=== PATIENT | female | born 1945 | race Caucasian/White ===

== ENCOUNTER → 2019-01-11 | Outpatient (CLI) | payer MEDICARE ==
[~2019-01-11] MED LIST: Estrogel93 GM VAG; LISI5
[2019-01-11 12:15] LABS: BASOPHILS ABSOLUTE AUTO 0.04 K/mm3 (0.00-0.23); BASOPHILS PERCENT AUTO 1 % (0-2); EOSINOPHILS ABSOLUTE AUTO 0.09 K/mm3 (0.00-0.68); EOSINOPHILS PERCENT AUTO 1 % (0-6); Hematocrit 28.9 % (33.0-51.0); Hemoglobin 9.7 g/dL (11.5-16.0); IMMATURE GRAN ABSOLUTE AUTO 0.07 K/mm3 (0.00-0.10); IMMATURE GRAN PERCENT AUTO 1 % (0-1); LYMPHOCYTES ABSOLUTE AUTO 1.06 K/mm3 (0.84-5.20); LYMPHOCYTES PERCENT AUTO 14 % (21-46); MONOCYTES ABSOLUTE AUTO 0.69 K/mm3 (0.16-1.47); MONOCYTES PERCENT AUTO 9 % (4-13); Mean Corpuscular HGB 32.7 pg (26.0-34.0); Mean Corpuscular HGB Conc 33.6 g/dL (31.5-36.5); Mean Corpuscular Volume 97 fL (80-100); NEUTROPHILS ABSOLUTE AUTO 5.89 K/mm3 (1.96-9.15); NEUTROPHILS PERCENT AUTO 75 % (41-73); Platelet Count 569 K/mm3 (150-400); RDW Coefficient Variation 13.2 % (11.7-14.2); RDW Standard Deviation 45.7 fL (35.1-46.3); Red Blood Cell Count 2.97 M/mm3 (3.80-5.20); White Blood Cell Count 7.84 K/mm3 (4.00-11.30)
[2019-01-11 12:27] LABS: Alanine Aminotransfer (ALT/SGP 25 U/L (12-78); Albumin/Globulin Ratio 0.8 (0.8-1.8); Alk Phos 61 U/L (50-136); Anion Gap 6 mmol/L (6-16); Aspartate Aminotrans (AST/SGOT 21 U/L (12-37); Bilirubin, Total 0.4 mg/dL (0.1-1.0); Blood Urea Nitrogen 12 mg/dL (8-24); Bun/Creatinine Ratio 19.5 (12.0-20.0); CO2, Blood 30 mmol/L (21-32); Chloride, Blood 100 mmol/L (98-108); Creatinine, Blood 0.62 mg/dL (0.40-1.00); Globulin, Blood 3.6 g/dL (2.2-4.0); Glomerular Filtration Rate >60 (60-); Glucose, Blood 102 mg/dL (70-99); Potassium, Blood 4.5 mmol/L (3.5-5.5); Sodium, Blood 136 mmol/L (136-145); Total Protein, Blood 6.6 g/dL (6.4-8.2)
== END | disposition home or self-care (01) ==
LOC: LAB SHORT 11:51 → LAB 11:51
PROVIDERS: Registered Nurse Oncology
DX: C25.0 Malignant neoplasm of head of pancreas (principal)
CPT/HCPCS: 80053; 85025

== ENCOUNTER → 2021-12-16 | Outpatient (CLI) | payer MEDICARE | END | disposition home or self-care (01) | LOC: LAB SHORT 11:12 → PLD 11:12 | DX: L57.0 Actinic keratosis (principal); L21.0 Seborrhea capitis | CPT/HCPCS: 88305 ==

== ENCOUNTER 2022-01-09 11:13 | Inpatient (IN) | payer MEDICARE ==
[~2022-01-09] VITALS: Ht 165.1 cm; Wt 45.4 kg
[~2022-01-09 11:13] MED LIST changes: +ASPI81CH PO; +ATOR40TA PO; +CHOLESTYRAMI239.4 G1 PO; +CLOP75 PO; +CREON DR 36,001 EACH PO; +MS Contin15 MG PO; +OXYC5
[2022-01-09 12:06] LABS: BASOPHILS ABSOLUTE AUTO 0.02 K/mm3 (0.00-0.23); BASOPHILS PERCENT AUTO 0 % (0-2); EOSINOPHILS PERCENT AUTO 0 % (0-6); Hematocrit 33.9 % (33.0-51.0); Hemoglobin 11.2 g/dL (11.5-16.0); IMMATURE GRAN ABSOLUTE AUTO 0.09 K/mm3 (0.00-0.10); IMMATURE GRAN PERCENT AUTO 1 % (0-1); LYMPHOCYTES ABSOLUTE AUTO 0.28 K/mm3 (0.84-5.20); LYMPHOCYTES PERCENT AUTO 2 % (21-46); MONOCYTES ABSOLUTE AUTO 0.57 K/mm3 (0.16-1.47); MONOCYTES PERCENT AUTO 4 % (4-13); Mean Corpuscular HGB 32.5 pg (26.0-34.0); Mean Corpuscular Volume 98 fL (80-100); Mean Platelet Volume 10.1 fL (9.1-12.4); NEUTROPHILS PERCENT AUTO 94 % (41-73); Platelet Count 281 K/mm3 (150-400); RDW Coefficient Variation 13.5 % (11.7-14.2); RDW Standard Deviation 48.2 fL (35.1-46.3); Red Blood Cell Count 3.45 M/mm3 (3.80-5.20); White Blood Cell Count 14.66 K/mm3 (4.00-11.30)
[2022-01-09 12:09] LABS: Albumin, Blood 3.2 g/dL (3.4-5.0); Albumin/Globulin Ratio 0.8 (0.8-1.8); Bun/Creatinine Ratio 26.9 (12.0-20.0); Calcium, Blood 9.4 mg/dL (8.5-10.1); Creatinine, Blood 0.56 mg/dL (0.40-1.00); Globulin, Blood 3.9 g/dL (2.2-4.0); Potassium, Blood 3.7 mmol/L (3.5-5.5); Total Protein, Blood 7.1 g/dL (6.4-8.2)
--- NOTE | 2022-01-09 20:53 | NUR ---
2049 REPORT RECIEVED FROM RASTA LAKE @ .
--- NOTE | 2022-01-10 00:09 | NUR ---
2129: PT ARRIVE TO MEDICAL FLOOR UNIT ROOM 340, VIA GURNEY TRANSFERED WITH A SLIDER SHEET. PT NONDISTRESSED. AOX4. PALE AND APPEARS TO BE VERY WEAK. PT REPORTS ABD PAIN 8/10, MEDICATED WITH 1MG DILAUDID. LR INFUSING AT 100MLS/HR WITH A RIGHT AC IV. VOIDED 300MLS, TEA COLOR URINE. AMBULATES WITH 1 SBA WITH FWW AND GB DENIES DIZZINESS, STEADY ON FEET. TOLERATING WATER AND RAMBO. PT DENIES N/V. VSS. DENIES CHEST PAIN. PT ON 2L NC, SATURATING WNL OVER 95%. CALL LIGHT WITHIN REACH. WILL CONTINUE TO MONITOR PT.
--- NOTE | 2022-01-10 04:04 | NUR ---
SHIFT SUMMARY NO ACUTE CHANGES OVERNIGHT. PT REPORT PAIN WHEN SHE GOT TO THE FLOOR. PAIN MANAGED WITH 1MG DILAUDID. VSS. PT ON 2L NC, WITH O2 SAT ABOVE 95%. PT TOLERATING PO INTAKE, DENIES NAUSEA AND VOMITING. PT MAY HAVE POOR APPEPTITE. IV FLUIDS INFUSING LR AT 100MLS/HR. IV ABX ADMINISTERED. AOX3. APPEARS TO BE ILL AND FATIGUE. NON DISTRESSED. CALL LIGHT WITHIN REACH. WILL CONTINUE TO MONITOR AND WILL PROVIDE REPORT TO ONCOMING NURSE.
[2022-01-10 04:45] LABS: BASOPHILS ABSOLUTE AUTO 0.02 K/mm3 (0.00-0.23); BASOPHILS PERCENT AUTO 0 % (0-2); EOSINOPHILS PERCENT AUTO 0 % (0-6); Hematocrit 32.6 % (33.0-51.0); Hemoglobin 10.6 g/dL (11.5-16.0); IMMATURE GRAN ABSOLUTE AUTO 0.12 K/mm3 (0.00-0.10); IMMATURE GRAN PERCENT AUTO 1 % (0-1); LYMPHOCYTES ABSOLUTE AUTO 0.78 K/mm3 (0.84-5.20); LYMPHOCYTES PERCENT AUTO 5 % (21-46); MONOCYTES ABSOLUTE AUTO 0.62 K/mm3 (0.16-1.47); MONOCYTES PERCENT AUTO 4 % (4-13); Mean Corpuscular HGB 32.1 pg (26.0-34.0); Mean Corpuscular HGB Conc 32.5 g/dL (31.5-36.5); Mean Corpuscular Volume 99 fL (80-100); Mean Platelet Volume 9.9 fL (9.1-12.4); NEUTROPHILS ABSOLUTE AUTO 15.18 K/mm3 (1.96-9.15); NEUTROPHILS PERCENT AUTO 91 % (41-73); Platelet Count 212 K/mm3 (150-400); RDW Coefficient Variation 14.3 % (11.7-14.2); RDW Standard Deviation 51.7 fL (35.1-46.3); White Blood Cell Count 16.72 K/mm3 (4.00-11.30)
[2022-01-10 05:03] LABS: Albumin, Blood 2.5 g/dL (3.4-5.0); Albumin/Globulin Ratio 0.7 (0.8-1.8); Bilirubin, Total 6.1 mg/dL (0.1-1.0); Bun/Creatinine Ratio 29.2 (12.0-20.0); Calcium, Blood 8.6 mg/dL (8.5-10.1); Creatinine, Blood 0.58 mg/dL (0.40-1.00); Globulin, Blood 3.4 g/dL (2.2-4.0); Potassium, Blood 3.7 mmol/L (3.5-5.5); Total Protein, Blood 5.9 g/dL (6.4-8.2)
--- NOTE | 2022-01-10 18:33 | NUR ---
PATIENT WAS ON OXYGEN, BUT NORMALLY DOES NOT USE THIS AT HOME. WE REMOVED THE 02, AND SA02 REMAIN 98% RA. OXYGEN IS NO LONGER ON, BUT TUBING IS BEDSIDE INCASE SHE WOULD NEED IT. PATIENTS PAIN HAS BEEN MANAGED THIS SHIFT. MID ABDOMEN PAIN. A BILIARY DUCT STENT IS BLOCKED. THERE IS A PREOP CONSULT WITH [facility] ON THURSDAY FOR A NEW STENT POSSIBLY. SHE WAS FOUND TO HAVE LEISONS ON THE LIVER WITH GOOD POSSIBILITY OF METS FROM PANCREATIC CANCER. PATIENT IS ALERT AND ORIENTATED WITH MOMENTS OF DAZING OFF INTO THE DISTANCE. SHE IS ABLE TO AMBULATE TO THE , WITH WALKER AND STAND BY. CREON (MEDICATION) IS A DIFFERENT DOSE THAN HOME CAPSULE, SO IS ABLE TO BRING HOME CAPSULES IN, AND WE MAY HAVE PHARMACY VERIFY. (SHE HAS TO TAKE ALOT MORE CAPSULES TO EQUAL HER HOME DOSE ON THE CAPS SUELLEN CURRENTLY HAS) WBC HIGH, AND IV ABX ARE PRESCRIBED AND IFUSING-WELL TOLERATED.
--- NOTE | 2022-01-11 04:59 | NUR ---
SHIFT SUMMARY NO ACUTE EVENTS T/O SHIFT. EARLY IN THE EVENING PT C/O NAUSEA AND WAS GIVEN PRN MEDICATION WHICH HELPED. PT THEN C/O 8/10 ABDOMINAL PAIN WHICH SHE THOUGHT WAS GAS PAIN, BUT WAS UNABLE TO PASS ANY GAS OR STOOL. HER PRN PO PAIN MEDICATION WASN'T BRINGING HER PAIN TO TOLERABLE LEVELS, SO SHE WAS GIVEN PRN DILAUDED WHICH DID BRING THE PAIN TO A TOLERABLE LEVEL. PT'S CT REVEALED INCREASING PANCREATIC MALIGNANCY WELL LESIONS ON THE LIVER. AT THIS TIME WE ARE UNAWARE IF THE DOCTOR HAS DISCUSSED THESE FINDINGS WITH HER.
--- NOTE | 2022-01-11 14:55 | NUR ---
SHIFT SUMMARY PT AWAKE DURING SHIFT REPORT THIS AM. PLEASANT AND CO-OP, ABLE TO MAKE NEEDS KNOWN. UP TO BTHRM WITH 1P SBA USING FWW. PT ADMITTED FOR BILARY STENT OCCULSSION; WAITING FOR DR HERMAN TO SEE HER ON THURSDAY. DR NGUYEN IN THIS AM TO SEE PT. CT OF HEAD AND CHEST DONE AFTER BREAKFAST. PER DR NGUYEN, PT TO F/U WITH DR FAITH OUTPT. HOME DOSE OF CREON BROUGHT IN BY TO VERIFY. BOWEL CARE GIVEN PER PT REQUEST. PT UP TO BTHRM SEVERAL TIMES; C/O BLOATING/GAS. MEDICATED FOR C/O PAIN PER EMAR. IV ABX GIVEN PER EMAR. EATING BETTER FOR LUNCH. RESTING QUIETLY AT THIS TIME. CALL LT IN REACH.
--- NOTE | 2022-01-12 04:39 | NUR ---
SHIFT SUMMARY ADMITTED FOR CHOLANGITIS/SEPSIS. DNR CODE. FOUND TO HAVE A BILIARY STENT OCCLUSION.IV ANTIB RX ARE SCHEDULED. MEDIPORT IN PLACE BUT NOT ACCESSED. HX OF PANCREATIC CANCER. DR. GUZMAN WILL SEE PT THURSDAY FOR POSSIBLE STENT. PT WILL SEE ONCOLOGY OUTPT. METASTASIS IS POSSIBLE. SHE IS ON PLAVIX. PRN PAIN MEDICATION GIVEN THIS SHIFT
[2022-01-12 05:13] LABS: BASOPHILS ABSOLUTE AUTO 0.01 K/mm3 (0.00-0.23); BASOPHILS PERCENT AUTO 0 % (0-2); EOSINOPHILS ABSOLUTE AUTO 0.02 K/mm3 (0.00-0.68); EOSINOPHILS PERCENT AUTO 0 % (0-6); Hematocrit 29.2 % (33.0-51.0); Hemoglobin 9.6 g/dL (11.5-16.0); IMMATURE GRAN ABSOLUTE AUTO 0.02 K/mm3 (0.00-0.10); IMMATURE GRAN PERCENT AUTO 0 % (0-1); LYMPHOCYTES ABSOLUTE AUTO 0.94 K/mm3 (0.84-5.20); LYMPHOCYTES PERCENT AUTO 15 % (21-46); MONOCYTES ABSOLUTE AUTO 0.34 K/mm3 (0.16-1.47); MONOCYTES PERCENT AUTO 6 % (4-13); Mean Corpuscular HGB Conc 32.9 g/dL (31.5-36.5); Mean Corpuscular Volume 100 fL (80-100); Mean Platelet Volume 10.6 fL (9.1-12.4); NEUTROPHILS ABSOLUTE AUTO 4.84 K/mm3 (1.96-9.15); NEUTROPHILS PERCENT AUTO 79 % (41-73); Platelet Count 193 K/mm3 (150-400); RDW Coefficient Variation 14.6 % (11.7-14.2); RDW Standard Deviation 54.5 fL (35.1-46.3); Red Blood Cell Count 2.91 M/mm3 (3.80-5.20); White Blood Cell Count 6.17 K/mm3 (4.00-11.30)
[2022-01-12 05:26] LABS: Albumin, Blood 2.1 g/dL (3.4-5.0); Albumin/Globulin Ratio 0.6 (0.8-1.8); Bilirubin, Total 2.2 mg/dL (0.1-1.0); Bun/Creatinine Ratio 37.1 (12.0-20.0); Calcium, Blood 8.2 mg/dL (8.5-10.1); Creatinine, Blood 0.59 mg/dL (0.40-1.00); Globulin, Blood 3.4 g/dL (2.2-4.0); Potassium, Blood 4.2 mmol/L (3.5-5.5); Total Protein, Blood 5.5 g/dL (6.4-8.2)
--- NOTE | 2022-01-12 16:47 | NUR ---
SHIFT SUMMARY PT RESTING QUIETLY AT START OF SHIFT. WAKES EASILY FOR CARE. C/O PAIN THRU OUT THE DAY; MEDICATED PER EMAR. HEATING PAD GIVEN WELL; PT REPORTED IT HELPFUL. PT NOT EATING MUCH, BUT DOES TRY TO DRINK ENSURE'S AND FOCUS ON WHAT IS MOST IMPORTANT FOR NUTRITION. IN TO SEE PT THIS AFTERNOON. UP TO BTHRM NEEDED USING FWW AND SBA. CONTINUES TO WAIT FOR CONSULT WITH DR GUZMAN TOMORROW. CALL LT IN REACH. ABLE TO MAKE NEEDS KNOWN.
[2022-01-13 06:13] LABS: BASOPHILS ABSOLUTE AUTO 0.01 K/mm3 (0.00-0.23); BASOPHILS PERCENT AUTO 0 % (0-2); EOSINOPHILS ABSOLUTE AUTO 0.01 K/mm3 (0.00-0.68); EOSINOPHILS PERCENT AUTO 0 % (0-6); Hematocrit 32.1 % (33.0-51.0); Hemoglobin 10.3 g/dL (11.5-16.0); IMMATURE GRAN ABSOLUTE AUTO 0.02 K/mm3 (0.00-0.10); IMMATURE GRAN PERCENT AUTO 0 % (0-1); LYMPHOCYTES ABSOLUTE AUTO 1.08 K/mm3 (0.84-5.20); LYMPHOCYTES PERCENT AUTO 17 % (21-46); MONOCYTES ABSOLUTE AUTO 0.39 K/mm3 (0.16-1.47); MONOCYTES PERCENT AUTO 6 % (4-13); Mean Corpuscular HGB 32.2 pg (26.0-34.0); Mean Corpuscular HGB Conc 32.1 g/dL (31.5-36.5); Mean Corpuscular Volume 100 fL (80-100); Mean Platelet Volume 10.5 fL (9.1-12.4); NEUTROPHILS ABSOLUTE AUTO 4.87 K/mm3 (1.96-9.15); NEUTROPHILS PERCENT AUTO 76 % (41-73); Platelet Count 216 K/mm3 (150-400); RDW Coefficient Variation 14.4 % (11.7-14.2); RDW Standard Deviation 53.3 fL (35.1-46.3); White Blood Cell Count 6.38 K/mm3 (4.00-11.30)
[2022-01-13 06:30] LABS: Albumin, Blood 2.3 g/dL (3.4-5.0); Albumin/Globulin Ratio 0.6 (0.8-1.8); Bilirubin, Total 1.8 mg/dL (0.1-1.0); Bun/Creatinine Ratio 26.8 (12.0-20.0); Calcium, Blood 8.4 mg/dL (8.5-10.1); Creatinine, Blood 0.6 mg/dL (0.40-1.00); Globulin, Blood 3.8 g/dL (2.2-4.0); Potassium, Blood 4.4 mmol/L (3.5-5.5); Total Protein, Blood 6.1 g/dL (6.4-8.2)
[2022-01-13 16:39] LABS: Hematocrit 29.2 % (33.0-51.0); Hemoglobin 9.6 g/dL (11.5-16.0)
--- NOTE | 2022-01-13 16:56 | NUR ---
SHIFT SUMMARY PT WENT FOR SURGERY FOR BILIARY STENT BLOCKAGE TODAY. PT RETURNED APPROX 1245. POST OP VITALS INITATED. PT HAD URESIL DRAIN PLACED INSTEAD OF REPLACING STENT. WOUND TO RLQ HAD PRESSURE DRESSING ON UPON RETURN TO MEDICAL FLOOR. DRESSING SATURATED BY BLOOD AFTER ABOUT AN HOUR. SURGEON CONSULTED AND GAVE INSTRUCTION TO APPLY NEW PRESSURE DRESSING. RN FROM [facility]IED [facility] CAME TO ASSIST WITH DRESSING CHANGE. PT REPORTS 10/10 PAIN IN ABDOMEN. MEDICATED PER EMAR. AT APPROX 1700, SECOND DRESSING APPEARS TO BE SOAKING THROUGH. CHARGE NURSE INVOLVED WITH CASE. STAT H&H ORDERED. WILL REDRESS SITE AND CONSULT WITH SURGEON ON NEXT STEPS. PT CURRENTLY LAYING IN BED, TRYING TO REST. CALL LIGHT IN REACH.
[2022-01-13 20:46] LABS: Hematocrit 30.7 % (33.0-51.0); Hemoglobin 9.9 g/dL (11.5-16.0)
--- NOTE | 2022-01-14 00:49 | NUR ---
PRESSURE DX CHANGED TO BILIARY DRAIN INSERTION SITE. IT CONT'S TO CONSTANTLY OOZE RED BLOODY DRAINAGE W/LARGE AMT OF DARK BROWN/BLOOD TINGED OUTPUT EMPTIED FROM URESIL DRAINAGE BAG. APPROX 550MLS OUTPUT THUS FAR THIS SHIFT. DRAIN SPONGES AND ABD PAD WERE REPLACED W/PRESSURE APPLIED DURING APPLICATION OF NEW CLEAR OCCLUSIVE DX OVER TOP. PRN PAIN MEDS RECEIVED PER EMAR, AWAITING EFFECT AND WCTM DX/NEED TO CHANGE AGAIN. WAS PREVIOUSLY MADE AWARE OF PERSISTANT DRAINAGE W/NO NEW ORDERS RECIEVED AT THE TIME.
[2022-01-14 01:02] LABS: Hematocrit 29.7 % (33.0-51.0); Hemoglobin 9.6 g/dL (11.5-16.0)
[2022-01-14 05:30] LABS: BASOPHILS ABSOLUTE AUTO 0.02 K/mm3 (0.00-0.23); BASOPHILS PERCENT AUTO 0 % (0-2); EOSINOPHILS PERCENT AUTO 0 % (0-6); Hematocrit 23.9 % (33.0-51.0); Hemoglobin 7.7 g/dL (11.5-16.0); IMMATURE GRAN ABSOLUTE AUTO 0.03 K/mm3 (0.00-0.10); IMMATURE GRAN PERCENT AUTO 0 % (0-1); LYMPHOCYTES ABSOLUTE AUTO 1.67 K/mm3 (0.84-5.20); LYMPHOCYTES PERCENT AUTO 22 % (21-46); MONOCYTES ABSOLUTE AUTO 0.48 K/mm3 (0.16-1.47); MONOCYTES PERCENT AUTO 6 % (4-13); Mean Corpuscular HGB 32.2 pg (26.0-34.0); Mean Corpuscular HGB Conc 32.2 g/dL (31.5-36.5); Mean Corpuscular Volume 100 fL (80-100); Mean Platelet Volume 10.2 fL (9.1-12.4); NEUTROPHILS ABSOLUTE AUTO 5.52 K/mm3 (1.96-9.15); NEUTROPHILS PERCENT AUTO 72 % (41-73); Platelet Count 201 K/mm3 (150-400); RDW Standard Deviation 51.6 fL (35.1-46.3); Red Blood Cell Count 2.39 M/mm3 (3.80-5.20); White Blood Cell Count 7.72 K/mm3 (4.00-11.30)
--- NOTE | 2022-01-14 05:50 | NUR ---
SUMMARY: PT A/OX4, IS PLEASANT AND COOPERATIVE W/CARE AND SPECIFIES NEEDS. BILIARY DRAIN REMAINS PATENT AND DRAINING DARK RODRIGUEZ/BROWN, BLOOD TINGED OUTPUT W/MODERATE AMT OF BLOOD CLOTS OBSERVED. THERE'S BEEN APPROX 950 MLS OUTPUT THIS SHIFT. PRESSURE DX TO THE BILIARY INSERTION SITE REMAINS C/D/I AFTER BEING CHANGED ONCE THIS SHIFT. PREVIOUS DX HAD BECOME SATURATED FROM CONSTANT OOZING OF BLOOD AND SEROSANGUINOUS DRAINAGE AROUND DRAIN. SEE PREVIOUS NOTE FOR DETAILS. SHE REPORTS ABDO FEELS LESS DISTENDED/BLOATED THIS MORNING AND ABDO/R.SIDE PAIN IS SLIGHLTY IMPROVED BUT SHE'S REQUIRED REGULAR PRN PAIN MEDICATION T/O NOCTE. X3 DOSES OXYCODONE, X2 DOSES DILAUDID AND A ONE TIME DOSE OF FENTANYL WERE RECIEVED THIS SHIFT TO ACHIEVE 7-8/10 PAIN CONTROL. SHE ALSO HAD INTERMITTENT NAUSEA W/ZOFRAN RECIEVED X2 DOSES FOR TOLERABLE RELIEF. Q4H VITALS HAVE BEEN STABLE BUT BP IS SLIGHTLY LOW THIS AM, NOW 107/63. SHE DOES ADMIT TO "FINALL" FEELING SLIGHTLY MORE COMFORTABLE. Q4H MONITORING OF HGB/HCT IN PROGRESS. THESE LABS HAD HELD STABLE T/O NOCTE BUT THEY SIGNIFICANTLY DROPPED THIS AM, NOW 7.7/23.9 WAS 9.6/29.7. PLAN TO ALERT MD OF CHANGE. PT DENIES SOB, DIZZINESS AND ALL S/S CARDIAC OR RESPIRATORY DISTRESS. SHE WAS UP TO TOILET ONCE THIS SHIFT W/SBA AND TOLERATED AMBULATING FAIR DESPITE PAIN. PT WAS ASSISTED W/REPOSITIONING IN BED FOR SBD PREVENTION WEAKNESS PERSISTS. NO ACUTE CHANGES, VSS/AFEBRILE. WCTM/REPORT TO DAY RN.
[2022-01-14 05:59] LABS: Albumin/Globulin Ratio 0.6 (0.8-1.8); Bilirubin, Total 1.3 mg/dL (0.1-1.0); Bun/Creatinine Ratio 32.4 (12.0-20.0); Creatinine, Blood 0.62 mg/dL (0.40-1.00); Globulin, Blood 3.2 g/dL (2.2-4.0); Magnesium, Blood 2.3 mg/dL (1.6-2.4); Phosphorus, Blood 2.5 mg/dL (2.5-4.9); Potassium, Blood 4.4 mmol/L (3.5-5.5); Total Protein, Blood 5.2 g/dL (6.4-8.2)
--- NOTE | 2022-01-14 06:31 | NUR ---
ALERTED TO TRENDING DOWNWARD HGB/HCT. NEW ORDERS RECIEVED TO TYPE AND CROSS AND CLOSELY MONITOR BP'S, HGB/HCT AND BILIARY DRAIN OUTPUT AND SITE BLEEDING. WILL ENSURE DAY SHIFT IS AWARE TO REPORT ABNORMAL FINDINGS AND FURTHER DROP IN LAB VALUES.
[2022-01-14 08:53] LABS: Hematocrit 23.4 % (33.0-51.0); Hemoglobin 7.5 g/dL (11.5-16.0)
[2022-01-14 11:42] LABS: Hematocrit 22.9 % (33.0-51.0); Hemoglobin 7.3 g/dL (11.5-16.0)
[2022-01-14 12:48] LABS: Hemoglobin 7.5 g/dL (11.5-16.0)
[2022-01-14 16:53] LABS: Hemoglobin 7.3 g/dL (11.5-16.0)
--- NOTE | 2022-01-14 17:00 | NUR ---
PATIENT IS PAINFUL TODAY, IN THE AREA OF THE BILIARY DRAIN. THE DRESSING WAS CHANGED X 1 THIS SHIFT, WITH NO BLODDY DRAINAGE ON THE DRESSING. THE DRAIN HAS BEEN PUTTING OUT BROWN/RUST COLORED FLUID AT A FAIRLY GOOD RATE. NO LARGE CLOTS PRESENT, WHICH IS A POSITIVE DIFFERENCE SINCE LAST SHIFT. PATIENT HGB IS LOW AND THE PROVIDER HAS ORDER TO TRANSFUSE IF HGB DROPS TO 7. TODAY HGB 842AM 7.5, HGB 1135 7.3, HGB 1227 7.5 AND HGB 1625 7.3. PATIENT HAS HAD ROXICODONE PRN X 2 THIS SHIFT, ALONG WITH SCHEDULED MORPHINE. WHILE RESTING, SHE IS MORE COMFORTABLE, BUT UP THE BR, OR WITH MOVEMENT PAIN IN THE INCISION AREA GOES UP TO 9/10 EVEN WITH PAIN MEDICATION ON BOARD. APPETITE IS DECREASED. LITTLE FOOD TAKEN IN. SUPPLEMENT 100%. NORMAL SALINE RATE CHANGED TO 50 CC/HR, CONTINUOUS, AND ANTIBIOTIC WAS CHANGED TO UNISYN.
[2022-01-14 19:53] LABS: Hematocrit 24.7 % (33.0-51.0); Hemoglobin 7.9 g/dL (11.5-16.0)
--- NOTE | 2022-01-15 04:02 | NUR ---
SUMMARY: PT A/OX4, SPECIFIES NEEDS AND IS PLEASANT AND COOPERATIVE W/CARE. SHE REMAINS DROWSY AND SLEPT MAJORITY OF NOCTE BUT IS WAKEFUL DURING CARE AND ASSISTS W/REPOSITIONING. SHE WAS UP W/1PA AND FWW TO TOILET BUT IS WEAK AND MOVES SLOWLY. ROM REMAINS LIMITED R/T PAIN AT NEW BILIARY DRAIN SITE BUT THIS SEEMS TO BE IMPROVING. SCHEDULED MS CONTIN, PRN DILAUDID X1 AND PRN ROXICODONE X1 RECIEVED TO ACHIEVE TOLERABLE 7/10 PAIN CONTROL. MODERATE AMT OF DARK TEA/ RUST COLORED BILIARY DRAIN OUPUT OBSERVED TO URISEL BAG W/OCCASIONAL SMALL CLOTS NOTED. DX TO INSERTION SITE DIDN'T REQUIRE CHANGED THIS SHIFT AND IS C/D/I W/O EVIDENCE BLEEDING. HGB/HCT REMAIN STABLE AND NO BLOOD TRANSFUSION NECCESSARY PER RX TO TRANSFUSE IF HGB<7.0. PT DENIED NAUSEA AND TOLERATED SMALL SIPS OF LIQUID TONIGHT. NS INFUSES AT 50 ML/HR W/ABX RECIEVED PER EMAR. NO ACUTE CHANGES, VSS/AFEBRILE. WCTM/REPORT TO DAY RN.
[2022-01-15 04:28] LABS: BASOPHILS ABSOLUTE AUTO 0.01 K/mm3 (0.00-0.23); BASOPHILS PERCENT AUTO 0 % (0-2); EOSINOPHILS ABSOLUTE AUTO 0.02 K/mm3 (0.00-0.68); EOSINOPHILS PERCENT AUTO 0 % (0-6); Hematocrit 22.2 % (33.0-51.0); IMMATURE GRAN ABSOLUTE AUTO 0.03 K/mm3 (0.00-0.10); IMMATURE GRAN PERCENT AUTO 0 % (0-1); LYMPHOCYTES ABSOLUTE AUTO 1.47 K/mm3 (0.84-5.20); LYMPHOCYTES PERCENT AUTO 21 % (21-46); MONOCYTES ABSOLUTE AUTO 0.55 K/mm3 (0.16-1.47); MONOCYTES PERCENT AUTO 8 % (4-13); Mean Corpuscular HGB 32.1 pg (26.0-34.0); Mean Corpuscular HGB Conc 31.5 g/dL (31.5-36.5); Mean Corpuscular Volume 102 fL (80-100); Mean Platelet Volume 10.4 fL (9.1-12.4); NEUTROPHILS PERCENT AUTO 70 % (41-73); Platelet Count 189 K/mm3 (150-400); RDW Coefficient Variation 14.1 % (11.7-14.2); RDW Standard Deviation 52.4 fL (35.1-46.3); Red Blood Cell Count 2.18 M/mm3 (3.80-5.20); White Blood Cell Count 6.88 K/mm3 (4.00-11.30)
[2022-01-15 04:52] LABS: Albumin, Blood 2.1 g/dL (3.4-5.0); Albumin/Globulin Ratio 0.7 (0.8-1.8); Bun/Creatinine Ratio 40.6 (12.0-20.0); C-REACTIVE PROTEIN, EXT RANGE 2.24 mg/dL (0.000-0.300); Calcium, Blood 7.8 mg/dL (8.5-10.1); Creatinine, Blood 0.52 mg/dL (0.40-1.00); Globulin, Blood 3.2 g/dL (2.2-4.0); Total Protein, Blood 5.3 g/dL (6.4-8.2)
[2022-01-15 08:50] LABS: Hemoglobin 7.7 g/dL (11.5-16.0)
--- NOTE | 2022-01-15 18:53 | NUR ---
PT IS A/OX4, PLEASANT AND COOPERATIVE. THE PT IS UP WITH ASSIST. THE PT APPEARS TO BE BREATHING EASILY ON RA AT THIS TIME. TODAY THE PT EREPORTED HAVING CRAMPING/STABBING ABD PAIN AND BLOATING.THE PT WAS MEDICATED FOR PAIN T/O THE DAY WITH LITTLE RELIEF. A CALL WAS MADE TO DR. DAVIS AND LACULOSE WAS ORDERED AND GIVEN THIS EVENING. PTS IS AT THE BEDSIDE AT THIS TIME. CALL LIGHT IN REACH.
--- NOTE | 2022-01-16 06:06 | NUR ---
SHIFT SUMMARY: ATTEMPTED TO MANAGE PT PAIN T/O SHIFT BUT WAS ONLY MODERATELY MANAGED. PT C/O SEVERE PAIN TO HER R ABD, NEAR HER BILLIARY DRAIN. KARINE [place] DISCUSSED WITH PROVIDER AND A ONE TIME DOSE OF DILAUDID WAS ADDED. AFTER ADMINSITRATION, ALONGSIDE OTHER EMAR ORDERS, THE PT PAIN WAS BETTER MANAGED. BILLIARY DRAIN HAD MODERATE DRAINAGE. THIS AM DRESSING IS BECOMING SATURATED MORE QUICKLY. PT IS UNABLE TO TOLERATE PRESSURE DRESSING, BULKY DRESSING APPLIED. SS DRAINAGE W/ BILE INTO URESIL BAG. WILL PASS ON TO DAYSHIFT OF INCREASED BLEEDING. CALL LIGHT WITHIN REACH.
--- NOTE | 2022-01-16 07:58 | NUR ---
ASSUMED CARE OF PT- BEDSIDE REPORT COMPLETED WITH NIGHT RN. PT HAS BEEN IN PAIN T/O THE NIGHT WITH FREQUENT PAIN MANAGEMENT MEDS GIVEN. PT STATED 9/10 PAIN IN THE RIGHT FLANK/SIDE/ABD WHERE THE DRAIN IS. PT ASSISTED WITH THE BEDPAN AND PAIN BECAME INTOLLERABLE. PT NO LONGER ABLE TO AMBULATE TO THE BATHROOM IN PREVIOUS SHIFTS D/T PAIN INHIBITING MOVEMENT. PLAN IS FOR PT TO RETURN TO [facility] TO UNBLOCK THE STENT WITH DR GUZMAN. PT NPO AT THIS TIME. PO MEDS HELD CURRENTLY UNTIL POST PROCEDURE.
--- NOTE | 2022-01-16 15:48 | NUR ---
late entry [place] down pt seen yesterday extentisve review of symptoms and review of how hospice works. Dr Edwards in to see pt about reviesion of drain. Theraputic time with patient she is very distraught. review of pain meds with nursing. brought her some paddded pillows for her tailbone. Gave her some strategies of diversion. Today waiting to be seen sleeping fullness and pain worse. Will follow up again tomorrow with support and evaluate pain.
--- NOTE | 2022-01-16 19:35 | NUR ---
SHIFT SUMMARY- PT ALERT AND ORIENTED TO SELF AND FAMILY. PT HAS HAD A LOT OF PAIN T/O THE SHIFT. SHE WAS MEDICATED FREQUENTLY THE MEDS WOULD ALLOW, HOWEVER SHE CALLED EVERY 30 MINUTES TO 1 HOUR T/O THE DAY, IN PAIN. SPOKE TO DR KAUR THIS MORNING WHEN HE ROUNDED ABOUT ADDING A FENTANYL PATCH, THAT SEEMED TO HELP A LITTLE, CALLED HIM THIS EVENING WHEN THE PT PAIN BECAME MORE SEVERE. DR ORDERED AN INCREASE IN FREQUENCY TO Q2 IN MARI OF THE PREVIOUS Q4. PT WAS TAKEN TO THE REFINING MACHINE OPERATOR WITH DR GUZMAN PRIOR TO HER IV ABX BEING GIVEN THIS EVENING AT 1820. VERBAL REPORT COMPLETED WITH THE NIGHT RN. SHE IS AWARE PAIN MANAGEMENT HAS BEEN AN ISSUE.
--- NOTE | 2022-01-17 06:05 | NUR ---
NIGHTSHIFT SUMMARY Patient returned from surgery at 1940, patient sleeping comfortably for about 2 hours, awoke at 2200, and reamined awake for most of the night. Patient complaining of severe visceral pain, calling every hour for pain medication. Attempted alternative therapy, patient reported pain was exruciating, wanted pain meds and to talk to palliative care nurse. Patient reported concern that if her pain was this severe, how could she possibly go home on hospice and be comfortable & manage pain. Patient also requesting if she could have a grossman placed before she goes home. Draing in right flank, cover with antimicrobial dressing, dried blood on skin post-op, but no drainage observed overnight. Drainage bag had 250mL of bloody/brown drainage.
--- NOTE | 2022-01-17 10:49 | NUR ---
MS HERRERA C/O SEVERE R ABDOMINAL SHARP AND PINCHING PAIN. ALSO C/O NAUSEA. NO EMESIS. SEE MAR FOR MEDICATION ADMINISTRATION. SEEN BY ALMA WITH PALIATIVE CARE AND SWITCHED TO COMFORT CARE STATUS. ROXINOL/ATIVAN 1ST DOSE PT SAID WAS INEFFECTIVE, 2ND DOSE OF ROXINOL GIVEN RECENTLY. PLAN TO GIVE PHENERGAN SUPPOSITORY WHEN PT ABLE TO TURN, BUT SHE SAID SHE'S NOT READY TO TURN YET. CHRISTIANSEN ORDERED AND WILL BE PLACED WHEN PT READY FOR IT. SHE IS DROWSY BUT UNCOMFORTABLE. IVF STOPPED AT 0950. BED LOW, CALL LIGHT IN REACH.
--- NOTE | 2022-01-17 14:58 | NUR ---
PUREWICK REMOVED AND CHRISTIANSEN PLACED AT 1300HRS WITH IMMEDIATE CLEAR YELLOW URINE OUTPUT. PT LOOKS MORE DROWSY AND SAID THAT HER PAIN IS SLIGHTLY BETTER BUT STILL SHARP AND PINCHING PAIN TO RIGHT ABDOMEN AROUND DRAIN SITE AND OVER GENERAL RIGHT ABDOMEN. SHE DID TAKE THE PHENERGAN SUPPOSITORY WHICH SHE SAID MAY HAVE HELPED THE NAUSEA A LITTLE. SHE TOOK A RECENT ATIVAN AND ROXINOL AND WANTS TO TRY TO GET SOME SLEEP. ICE PACK TO DRAIN SITE. SHE ALLOWED ME TO HELP HER TURN IN BED AND DID QUITE WELL TURNING ON HER RIGHT SIDE, PROPPED WITH PILLOWS. POOR APPETITE TODAY, TAKING SIPS OF WATER. IVF DISCONTINUED THIS MORNING. PLAN IN PLACE FOR DISCHARGE TO HOME WITH HOME HOSPICE TOMORROW WITH TRANSPORT BOOKED FOR 1000, BED LOW, CALL LIGHT IN REACH.
--- NOTE | 2022-01-17 15:40 | NUR ---
Multiple visits today pt having increased pain from intervention. burden in to see pt and plan initiated. Increase in anexiety meds alos and nausea meds pt vigilant and anxious to go home. Very distraught and want to pass fers suffering. She is finally sleeping.
--- NOTE | 2022-01-17 16:46 | NUR ---
SHIFT SUMMARY MS HERRERA HAS SHARP PAIN AND PINCHING PAIN TO R ABDOMEN AND BILIARY DRAIN SITE. 270CC BROWN OUTPUT FROM BILIARY DRAIN. PAIN HAS BEEN MANAGED WITH ROBAXIN AND ROXINOL AND SHE HAS MANAGED TO GET SOME SLEEP THIS AFTERNOON AND LOOKS TO BE SLEEPING NOW. HER NAUSEA IS BETTER CONTROLED AFTER VT PHENERGAN BUT POOR APPETITE, TOLERATING SIPS. CHRISTIANSEN WITH DARK YELLOW UOP. PT ON COMFORT CARE. ASSISTED UP TO BEDSIDE COMMODE BUT NO BM. WEAK BUT ABLE TO TRANSFER WITH ASSISTANCE. BED LOW, CALL LIGHT IN REACH, TOLERATING TURNING AND MOVING THIS AFTERNOON BETTER THAN THIS MORNING WHEN SHE WAS RELUCTANT TO MOVE DUE TO THE PAIN.
--- NOTE | 2022-01-17 18:29 | NUR ---
AWOKEN FOR REPOSITIONING AND ASSESSMENT. PT SAID PAIN IS BETTER CONTROLLED BUT WHEN ASKED FOR A NUMBER SAID 9/10. GIVEN ROXINOL.
--- NOTE | 2022-01-18 03:59 | NUR ---
NIGHTSHIFT SUMMARY Patient seemed disoriented to time & situation at the start of shift, she said she had a mtg & needed to find her . Helped pt call her , and pt went back to sleep. Patient slept comfortably all night, only asked for pain meds, after personal cares/repositioning. IV Unasyn given at midnight, pt lost IV access. Patient is on comfort care now, did not replace IV, let patient continue to sleep. Vargas in place, draining to gravity. Will continue to monitor.
--- NOTE | 2022-01-18 08:12 | NUR ---
0800 COMFORT CARE NOTE. PT SAID SHE FEELS A LOT MORE COMFORTABLE, PAIN DULL AT 3/10, NO NAUSEA. ABLE TO REPOSITION IN BED. ORIENTATED TO SELF, YEAR, PLACE . DROWSY.
--- NOTE | 2022-01-18 09:00 | NUR ---
Pal Care Comfort care visit - Pt with dry mouth. I raised HOB and assited pt with sipping water with straw and applied lip balm. She reports pain is "better". Currently 09/01 and medicare biller 08/01 earlier. Pt denies nausea. She asked what the plan was and when I reviewed plan for d/c home this am with hospice admit with her and her at home today pt acknowledged that this sounded familiar. Reviewed plan with RN and confirmed that gurney transport was set up for pt yesterday. Reviewed analgesics prn and premedication with Roxanol and ativan per eMAR shortly before transport arrives later this am. Pt expressed desire to take bites/sips from breakfast tray and it was brought to her.
[2022-01-18] MEDS ORDERED: FENTANYL1 EAC7 TOP (09:54)
[2022-01-18] MEDS ORDERED: ANASPAZ0.125 MG SL (09:54)
[2022-01-18] MEDS ORDERED: ATIVAN0.5 MG PO (09:55)
[2022-01-18] MEDS ORDERED: MORP20L PO (09:57)
--- NOTE | 2022-01-18 12:01 | NUR ---
MS HERRERA WAS DISCHARGED FROM THE HOSPITAL VIA AMBULANCE TRANSFER TO HOME WITH HOSPICE CARE AT 1035 THIS MORNING. SHE WAS PRE-MEDICATED FOR THE TRANSFER PER PALIATIVE CARE RN RECOMMENDATION WITH ROXINOL 10MG AND 1MG ATIVAN. PIV REMOVED INTACT PRE DISCHARGE. CHRISTIANSEN IN PLACE AT DISCHARGE. R BILIARY DRAIN IN PLACE AT DISCHARGE. PT BELONGINGS, SCRIPTS AND DISCHARGE INSTRUCTIONS, DRAIN ID CARD SENT HOME WITH PT/AMBULANCE. PT UP TO BSC AT 1015AM, NO BM. I SPOKE WITH RAHEL, HOME HOSPICE NURSE THIS MORNING FOR UPDATE AND JUNIOR ACCOUNTANT BOOKKEEPER FAXED PAPERWORK TO HOME HOSPICE. I SPOKE WITH PT'S ON THE PHONE THIS MORNING, HE KNEW EXPECTED DISCHARGE TIME. HE SAID THERE IS NO RUNNING WATER AT [facility] AND THE HOSPITAL BED IS SCHEDULED TO ARRIVE ON THURSDAY. THERE IS BOTTLED WATER. SON AT HOME TO HELP MARILU. RAHEL INFORMED OF THESE PROBLEMS THAT PT AND HER SAID THEY ARE FINE TO OVERCOME, RAHEL SAID HE MAY BE ABLE TO GET HOSPITAL BED DELIVERED TODAY. PT VERBALISED UNDERSTANDING OF DISCHARGE INSTRUCTIONS.
--- NOTE | 2022-01-18 12:41 | NUR ---
HOME MEDICATION OF CREON FOUND IN PT DRAWER. I CALLED PT'S AND TOLD HIM IT WOULD BE KEPT IN PHARMACY, TO HAVE ID TO PICK IT UP. MEDICATION DELIVERED TO PHARMACY.
== END 2022-01-18 10:36 | disposition hospice, home (50) | DRG 919 ==
LOC: ER 11:13 → MEDS 19:25
PROVIDERS: Hospitalist; Internal Medicine; Physician Assistant; Radiology Diagnostic Radiology; ADMIT Internal Medicine
PROC: 0F9930Z Drainage of Common Bile Duct with Drainage Device, Percutaneous Approach (ICD-10-PCS; principal; 2022-01-13)
PROC: BF101ZZ Fluoroscopy of Bile Ducts using Low Osmolar Contrast (ICD-10-PCS; 2022-01-13)
PROC: 0F793DZ Dilation of Common Bile Duct with Intraluminal Device, Percutaneous Approach (ICD-10-PCS; 2022-01-16)
DX: T85.510A Breakdown (mechanical) of bile duct prosthesis, initial encounter (principal); A41.9 Sepsis, unspecified organism; C25.0 Malignant neoplasm of head of pancreas; K83.09 Other cholangitis; D62 Acute posthemorrhagic anemia; R47.01 Aphasia; Z51.5 Encounter for palliative care; Z66 Do not resuscitate; G62.0 Drug-induced polyneuropathy; T45.1X5A Adverse effect of antineoplastic and immunosuppressive drugs, initial encounter; Z96.89 Presence of other specified functional implants; I10 Essential (primary) hypertension; J45.909 Unspecified asthma, uncomplicated; K59.09 Other constipation; Z88.2 Allergy status to sulfonamides; Z79.82 Long term (current) use of aspirin; Z79.899 Other long term (current) drug therapy; Z79.02 Long term (current) use of antithrombotics/antiplatelets; Z79.891 Long term (current) use of opiate analgesic; Z86.73 Personal history of transient ischemic attack (TIA), and cerebral infarction without residual deficits; Y82.8 Other medical devices associated with adverse incidents
CPT/HCPCS: 36415; 47533; 47540; 70470; 71260; 74177; 76705; 76937; 80053; 83605; 83690; 83735; 84100; 85014; 85018; 85025; 85651; 86140; 86850; 86900; 86901; 96365-59; 96375; 96376; 99152; 99153; 99285-25; A9270; C1725; C1729; C1769; C1874; C1894; J0295; J1170; J1650; J2250; J2405; J2543; J3010; J7030; J7040; J7120; Q9967